=== PATIENT | male | born 1990 | race African-American/Black ===

== ENCOUNTER 2021-12-11 06:10 | Emergency (ER) | payer SELFPAY ==
[~2021-12-11] VITALS: Ht 170.2 cm; Wt 77.1 kg
--- NOTE | 2021-12-11 11:16 | NUR ---
PT EATING LATE BREAKFAST AT THIS TIME. ASKED FOR HIS NAME BUT DOES NOT WANT TO PROVIDE ANY PERSONAL NOR MEDICAL INFORMATION.
--- NOTE | 2021-12-11 13:30 | NUR ---
Patient discharged to home/homeless in stable condition. Written and verbal after care instructions given. Pt refused homeless waiver/resources.
[2021-12-11 13:38] VITALS: BP 119/70
== END 2021-12-11 13:38 | disposition home or self-care (01) ==
LOC: ER 06:13
DX: G93.40 Encephalopathy, unspecified (principal); Z59.00 Homelessness unspecified